=== PATIENT | female | born 1955 | race Caucasian/White ===

== ENCOUNTER → 2020-04-28 16:15 | Outpatient (CLI) | payer OTHER, SELFPAY ==
--- NOTE | ~2020-04-28 | XR_ITS ---
EXAMINATION: XR hand RT min 3V EXAM DATE: 04/28/2020 16:52 INDICATION: Mass of subcutaneous tissue, right little finger. TECHNIQUE: Right hand frontal, lateral and oblique projections obtained and reviewed. There is no pr ior study for comparison. FINDINGS: Right metacarpal bones are unremarkable. There is mild polyarticular interphalangeal prima ry osteoarthritis. There are no bony erosions identified. There are no acute fractures identified. N o radiopaque foreign bodies identified. Slightly bulbous appearance to the 5th digit over the distal phalanx and also the middle phalanx. No discrete density abnormality is identified within the soft ti ssue. IMPRESSION: 1. Nonspecific soft tissue swelling right 5th digit. 2. Mild polyarticular osteoarthritis. Reviewed, dictated and finalized at location A. [facility]
== END ==
PROVIDERS: PCP Family Medicine; Visit Provider Plastic Surgery
DX: R22.31 Localized swelling, mass and lump, right upper limb (principal); M19.041 Primary osteoarthritis, right hand
CPT/HCPCS: 73130

== ENCOUNTER 2020-07-20 23:17 | Emergency (ER) | payer OTHER, SELFPAY ==
--- NOTE | ~2020-07-20 | XR_ITS ---
EXAMINATION: XR chest 1V portable DATE: 07/20/2020 23:46 INDICATION: Chest pain. Shortness of breath. TECHNIQUE: A single frontal view of the chest was obtained. COMPARISON: CT abdomen and pelvis 11/16/2017 FINDINGS: The patient is rotated to her left. There is mild scarring at the lung apices. No pleural e ffusion or pneumothorax. The heart size is normal. IMPRESSION: 1. Mild scarring at the lung apices. Reviewed, dictated and finalized at location A.
--- NOTE | 2020-07-20 23:22 | ED.CHESTPAIN ---
HPI - Chest Pain General Chief Complaint: Chest Pain Stated Complaint: cp Time Seen by Provider: 07/20/20 23:22 History of Present Illness HPI narrative: Not feeling well for over 1 week. Symptoms include nausea, fatigue, weakness, body aches, and intermittent chest pain. Today the chest pain got worse. It is sharp, substernal chest pain. Radiates to the back. Associated with dyspnea. Worse with taking a deep breath. She received COVID-19 vaccine a couple of days ago. Related Data Home Medications Medication Instructions Recorded Confirmed calcium carbonate 600 mg calcium 600 mg PO DAILY 03/13/19 (1,500 mg) tablet cholecalciferol (vitamin D3) 125 5,000 unit PO DAILY 03/13/19 mcg (5,000 unit) capsule cyanocobalamin (vitamin B-12) 1,000 mcg PO DAILY 03/22/20 1,000 mcg capsule Allergies Allergy/AdvReac Type Severity Reaction Status Date / Time Sulfa (Sulfonamide Allergy Rash Verified 07/20/20 23:30 Antibiotics) Review of Systems Review of Systems: All systems reviewed & are unremarkable except as noted in HPI and below Constitutional: Constitutional: Denies fever(s) Eyes: Eyes: Reports no additional eye complaints ENT: Reports nasal congestion and Denies sore throat Cardiovascular: Cardiovascular: Reports chest pain Respiratory: Respiratory: Reports dyspnea Gastrointestinal: Gastrointestinal: Reports nausea Genitourinary: Genitourinary: Reports no additional female genitourinary complaints Musculoskeletal: Musculoskeletal: Reports back pain Neurologic: Reports system reviewed and no additional complaints, except as documented Psychiatric: Psychiatric: Reports anxiety PMFSH Past Medical History Medical History Depression Encounter for gynecological examination (general) (routine) without abnormal findings Glaucoma Menopausal symptoms Skin rash RASHEL (stress urinary incontinence, female) Vaginal lesion Surgical History Surgical History H/O dilation and curettage H/O hysterectomy with oophorectomy History of tubal ligation S/P laparoscopic surgery [place] teeth removed Family History Family History Father Diabetes mellitus, Onset Age: 85 Hypertension, Onset Age: 85 Other Family history of malignant neoplasm Social History Social History Smoking status: Light tobacco smoker Second hand tobacco smoke exposure: No Alcohol intake: current Exam Const: General: healthy appearing, no acute distress and alert Orientation/consciousness: patient oriented x3 HENMT: Head: normal to inspection Neck: Neck: normal visual inspection Chest: Chest palpation & inspection: tenderness sternum Resp: Effort & Inspection: normal respiratory effort Auscultation: clear to auscultation bilaterally, no rales, no rhonchi and no wheezes Cardio: Jugular venous distension: no JVD Rate: regular rate Rhythm: regular rhythm GI: Inspection: non-distended GI Palp: Yes Soft to palpation and No Tenderness to palpation present (GI) Skin: General skin exam: normal color Neuro: General: patient oriented x3 and moves all extremities Speech: normal speech Extrem: General: no edema Psych: Appearance: well kempt Affect: normal affect Course Vital Signs Vital signs: Vital Signs Temperature 36.4 C 07/20/20 23:24 Pulse Rate 84 07/20/20 23:24 Respiratory Rate 20 07/20/20 23:24 Blood Pressure 127/82 07/20/20 23:24 Pulse Oximetry 100 07/20/20 23:24 Temperature 36.4 C 07/21/20 02:05 Pulse Rate 87 07/21/20 02:05 Respiratory Rate 16 07/21/20 02:05 Blood Pressure 109/64 07/21/20 02:05 Pulse Oximetry 97 07/21/20 02:05 MDM - Chest Pain Differential Diagnosis Differential diagnosis: Likely unstable angina pectori
--- NOTE | 2020-07-20 23:23 | ECG_ITS ---
Measurements Intervals [place] Rate: 81 P: 24 NV: 133 QRS: 33 QRSD: 86 T: 41 QT: 373 QTc: 435 Interpretive Statements SINUS RHYTHM BORDERLINE T WAVE ABNORMALITY- ANTERIOR LEADS BASELINE WANDER- II, III, AVF, V6 BORDERLINE ECG Electronically Signed On 07-22-2020 12:05:12 CDT by Zach Gamino D.O.
[2020-07-20 23:24] VITALS: BP 127/82; PULSE 84; RESP 20; TEMP 36.4; O2SAT 100
[2020-07-20 23:32] VITALS: PULSE 78
[2020-07-20 23:35] VITALS: PULSE 75; RESP 14; O2SAT 100
[2020-07-20] MEDS: MORPHINE SULFATE (*CRX) 2 MG/ML INJ IV PUSH (23:58)
[2020-07-20] MEDS: PANTOPRAZOLE SODIUM IV 40 MG VIAL IV PUSH (23:58)
[2020-07-20] MEDS: LORazepam INJ (*CRX) 2 MG/ML VIAL 0.5 MG IV PUSH (23:58)
[2020-07-20] MEDS: SODIUM CHLORIDE 0.9% IV 500 ML 999 ML IV CONT (23:59)
[2020-07-21] VITALS (12 sets, daily range): BP systolic 97–119; BP diastolic 50–76; PULSE 70–87; RESP 15–25; TEMP 36.4; O2SAT 97–100
[2020-07-21 00:01] LABS: Basophils Absolute Auto 0.1 K/mm3 (0.0-0.1); Basophils Percent Auto 0.5 % (0.2-1.2); Eosinophils Absolute Auto 0.1 K/mm3 (0-0.3); Eosinophils Percent Auto 0.7 % (0-4.4); Hematocrit 42.7 % (37.0-47.0); Hemoglobin 14.9 g/dL (12.0-15.0); Immature Granulocyte Absolute 0.03 K/mm3 (0.00-0.031); Immature Granulocyte Percent A 0.3 % (0-0.5); Lymphocytes Absolute Auto 0.88 K/mm3 (0.9-3.2); Lymphocytes Percent Auto 7.9 % (18.3-44.2); Mean Corpuscular HGB Conc 34.9 g/dl (32-36); Mean Corpuscular Hemoglobin 32.8 pg (26-34); Mean Corpuscular Volume 94.1 fl (80-100); Mean Platelet Volume 10.3 fl (7.4-10.4); Monocytes Absolute Auto 0.5 K/mm3 (0.1-0.6); Monocytes Percent Auto 4.7 % (2.6-8.5); Neutrophils Absolute Auto 9.5 K/mm3 (1.3-6.7); Neutrophils Percent Auto 85.9 % (45.5-73.1); Platelet Count Result 264 k/mm3 (150-375); Red Blood Count 4.54 M/mm3 (4.2-5.4); Red Cell Distribution Width 12.5 % (11.5-14.5); White Blood Count 11.1 K/mm3 (4.5-10.0)
[2020-07-21 00:10] LABS: Alanine Aminotransferase 18 U/L (4-35); Alkaline Phosphatase 53 U/L (38-126); Anion Gap 14 mmol/L (8-16); Aspartate Amino Transferase 26 U/L (14-36); Bilirubin,Total 0.6 mg/dL (0.2-1.3); Blood Urea Nitrogen 19 mg/dL (7-17); Calcium 9.9 mg/dL (8.4-10.2); Carbon Dioxide 25 mmol/L (22-30); Chloride 104 mmol/L (98-107); Estimated CRCL calculation 47 ml/min; Estimated Glomerular Filt Rate > 60; Glucose 110 mg/dL (65-105); Potassium 3.4 mmol/L (3.4-5.0); Sodium 143 mmol/L (137-145)
[2020-07-21 00:22] LABS: Troponin I < 0.012 ng/mL (0.000-0.034)
[2020-07-21 00:31] LABS: Add Urine Microscopic? YES; Appearance Urine Cloudy (Clear); Bilirubin Urine Negative (Negative); Blood Urine Negative (Negative); Color Urine Yellow (Yellow); Glucose Urine UA Negative (Negative); Ketones Urine 1+ mg/dL (Negative); Leukocyte Esterase Ur 2+ LEU/UL (Negative); Mucus Urine Heavy /lpf; Nitrate Urine Negative (Negative); Protein Urine 1+ mg/dL (Negative); Specific Grav Ur 1.017 (1.001-1.035); Squamous Epithelial Cell Urine Moderate /hpf (Few); Urobilinogen Urine Negative mg/dL (<2.0)
== END 2020-07-21 02:09 | disposition home or self-care (01) ==
PROVIDERS: Emergency Provider Emergency Medicine; PCP Family Medicine
DX: R07.89 Other chest pain (principal); R94.31 Abnormal electrocardiogram [ECG] [EKG]
CPT/HCPCS: 36415; 71045; 80053; 81001; 84484; 85025; 93005; 96361; 96374; 96375; 99284; C9113; J2060; J2270; J7040

== ENCOUNTER 2020-11-18 09:17 | Outpatient (CLI) | payer OTHER, SELFPAY ==
--- NOTE | ~2020-11-18 | US_ITS ---
EXAMINATION: US right upper quadrant EXAM DATE: 11/18/2020 10:04 INDICATION: Epigastric pain. TECHNIQUE: Multiple grayscale and Doppler images of the abdomen right upper quadrant were obtained (b y a technologist who performed the scan) and subsequently reviewed. There is no prior study for diogo ritchie. FINDINGS: The pancreatic head and body are normal in appearance. The pancreatic tail is not visualized. The l iver has normal echogenicity and contour. There are no focal liver lesions identified. There is no evidence of intrahepatic biliary duct dilation. Portal venous flow was seen in the hepatopedal, nor mal direction and has normal Doppler waveform. No right-sided hydronephrosis. Common bile duct measures 4 mm, which is normal. The gallbladder wall is normal in thickness, with ex pected amount of distention. No sonographic evidence of pericholecystic fluid. There is no cholelit hiases. Technologist performing exam reports patient did not demonstrate sonographic Miles's sign. Please note that this sign is less reliable in patients who have received pain medication. IMPRESSION: 1. Unremarkable abdominal ultrasound exam. Reviewed, dictated and finalized at location B.
== END 2020-11-18 09:18 | disposition home or self-care (01) ==
PROVIDERS: PCP Family Medicine; Visit Provider Family Medicine
DX: R10.13 Epigastric pain (principal)
CPT/HCPCS: 76705

== ENCOUNTER 2021-04-03 08:14 | Outpatient (CLI) | payer OTHER, SELFPAY ==
[2021-04-03 08:37] LABS: Basophils Absolute Auto 0.1 K/mm3 (0.0-0.1); Basophils Percent Auto 1.2 % (0.2-1.2); Eosinophils Absolute Auto 0.1 K/mm3 (0-0.3); Eosinophils Percent Auto 2.6 % (0-4.4); Hematocrit 40.9 % (37.0-47.0); Hemoglobin 14.1 g/dL (12.0-15.0); Immature Granulocyte Absolute 0.01 K/mm3 (0.00-0.031); Immature Granulocyte Percent A 0.2 % (0-0.5); Lymphocytes Percent Auto 28.8 % (18.3-44.2); Mean Corpuscular HGB Conc 34.5 g/dl (32-36); Mean Corpuscular Hemoglobin 33.4 pg (26-34); Mean Corpuscular Volume 96.9 fl (80-100); Mean Platelet Volume 10.1 fl (7.4-10.4); Monocytes Absolute Auto 0.3 K/mm3 (0.1-0.6); Monocytes Percent Auto 7.5 % (2.6-8.5); Neutrophils Absolute Auto 2.5 K/mm3 (1.3-6.7); Neutrophils Percent Auto 59.7 % (45.5-73.1); Platelet Count Result 246 k/mm3 (150-375); Red Blood Count 4.22 M/mm3 (4.2-5.4); Red Cell Distribution Width 12.2 % (11.5-14.5); White Blood Count 4.2 K/mm3 (4.5-10.0)
[2021-04-03 08:59] LABS: LDL Cholesterol Direct 107 mg/dL
[2021-04-03 09:02] LABS: Alanine Aminotransferase 18 U/L (4-35); Albumin Level 4.7 g/dL (3.5-5.1); Alkaline Phosphatase 65 U/L (38-126); Anion Gap 9 mmol/L (8-16); Aspartate Amino Transferase 28 U/L (14-36); Bilirubin,Total 1.1 mg/dL (0.2-1.3); Blood Urea Nitrogen 18 mg/dL (7-17); Calcium 9.6 mg/dL (8.4-10.2); Carbon Dioxide 27 mmol/L (22-30); Chloride 103 mmol/L (98-107); Cholesterol 259 mg/dL (0-200); Estimated Glomerular Filt Rate > 60; Glucose 99 mg/dL (65-110); Potassium 4.2 mmol/L (3.4-5.0); Sodium 139 mmol/L (137-145); Triglycerides 106 mg/dL (<150)
[2021-04-03 09:11] LABS: Vitamin D 25 Hydroxy 60.3 ng/mL
[2021-04-03 09:47] LABS: HDL Direct 116 mg/dL
== END 2021-04-03 08:15 | disposition home or self-care (01) ==
PROVIDERS: PCP Family Medicine; Visit Provider Student in an Organized Health Care Education/Training Program
DX: Z00.00 Encounter for general adult medical examination without abnormal findings (principal)
CPT/HCPCS: 36415; 80053; 80061; 82306; 84443; 85025

== ENCOUNTER 2021-05-22 01:15 | Day surgery (SDC) | payer OTHER, SELFPAY ==
[2021-05-11 08:46] VITALS: BMI 22.2
[2021-05-22 09:59] VITALS: BP 150/103; PULSE 92; RESP 18; TEMP 36.8; O2SAT 100; BMI 22.6
[2021-05-22] MEDS: LACTATED RINGERS 1,000 ML 150 ML IV CONT (10:08)
--- NOTE | 2021-05-22 10:12 | WPDANESEPPF ---
Anes - Initial Pre Proc Eval Procedure: Operation Date: 05/22/21 11:00 Proposed Procedures p Screening Colonoscopy - Klever Johnson MD Date/Time: 05/22/21 10:12 Surgeon: Klever Johnson MD Pre Op Diagnosis: neoplasm screening Patient Data Age: 65 Gender: F Height: 1.6 m Weight: 58.1 kg Last Vital Signs Temp 36.8 C 05/22/21 09:59 Pulse 92 05/22/21 09:59 Resp 18 05/22/21 09:59 BP 150/103 H 05/22/21 09:59 Pulse Ox 100 05/22/21 09:59 Allergies Allergy/AdvReac Type Severity Reaction Status Date / Time Sulfa (Sulfonamide Allergy Rash Verified 05/22/21 09:58 Antibiotics) Home Medications Medication Instructions Recorded Confirmed Type calcium carbonate 600 mg calcium 600 mg PO DAILY 03/13/19 05/11/21 History (1,500 mg) tablet cholecalciferol (vitamin D3) 125 5,000 unit PO DAILY 03/13/19 05/11/21 History mcg (5,000 unit) capsule cyanocobalamin (vitamin B-12) 1,000 mcg PO DAILY 03/22/20 05/11/21 History 1,000 mcg capsule venlafaxine 150 mg 150 mg PO DAILY #90 cap 03/24/21 05/11/21 Rx capsule,extended release 24 hr Patient hx anesthesia problems: none Family hx anesthesia problems: none Results Review: All pre-operative results and documents have been reviewed as part of the pre-operative evaluation. [facility] Past Medical History Medical History Depression Encounter for gynecological examination (general) (routine) without abnormal findings Glaucoma Menopausal symptoms Skin rash RASHEL (stress urinary incontinence, female) Vaginal lesion Surgical History Surgical History H/O dilation and curettage H/O hysterectomy with oophorectomy History of bladder surgery History of tubal ligation S/P laparoscopic surgery [place] teeth removed Family History Family History Father Diabetes mellitus, Onset Age: 85 Hypertension, Onset Age: 85 Other Family history of malignant neoplasm Social History Social History Smoking packs per day: 0.5 Smoking cigarettes per day: 10.0 Years smoked: 10 Smoking pack-years: 5.00 Smoking status: Former smoker Tobacco type: cigarettes Second hand tobacco smoke exposure: No Alcohol intake: current Drinks per week: 4 Substance use: never Substance use type: does not use Living arrangements: with family Anes - Eval Final PreProcedure Day of Procedure 05/22/21 10:12 Patient weight: normal Heart: regular rate and rhythm Lungs: clear to auscultation Airway: Mallampati scale class 1 Neurological: alert and oriented Last oral intake: >/= 8 hours ASA classification: II Emergent: no Anesthetic plan: proceed Anesthesia type and monitoring: general GIVS and standard monitoring Results Review: All pre-operative results and documents have been reviewed as part of the pre-operative evaluation. Informed Consent: The patient's anesthetic plan and its attendant risks and benefits were discussed with the patient/family/POA. Questions were solicited and answers provided to the satisfaction of the patient/family/POA.
--- NOTE | 2021-05-22 10:37 | PM.HPGS ---
History of Present Illness History of Present Illness Consent: Risks, benefits, and alternatives have been discussed and questions answered. Patient agrees to proceed with procedure. Chief complaint: neoplasm screening Narrative: Marielle Mo is a 65 year old female here for screening colonoscopy, last one 13 years ago. Review of Systems Constitutional: Constitutional: Denies headache(s) and Denies weakness Eyes: Eyes: Denies blurry vision ENT: Reports Normal hearing present, Denies headache(s) and Denies neck pain Cardiovascular: Cardiovascular: Denies chest pain and Denies dyspnea Respiratory: Respiratory: Denies dyspnea Gastrointestinal: Gastrointestinal: Reports no additional gastrointestinal complaints Genitourinary: Genitourinary: Denies dysuria Musculoskeletal: Musculoskeletal: Denies neck pain Integumentary/Breasts: Skin/Breast: Denies dry skin Neurologic: Reports Normal hearing present, Denies headache(s) and Denies weakness Psychiatric: Psychiatric: Denies anxiety Endocrine: Endocrine: Denies change in body appearance Hematologic/Lymphatic: Hematologic/Lymphatic: Denies easy bleeding Allergic/Immunologic: Allergic/Immunologic: Denies urticaria PMFSH Past Medical History Medical History (Updated 05/22/21 @ 10:37 by Klever Johnson MD) Colon cancer screening Depression Encounter for gynecological examination (general) (routine) without abnormal findings Glaucoma Menopausal symptoms Skin rash RASHEL (stress urinary incontinence, female) Vaginal lesion Surgical History Surgical History H/O dilation and curettage H/O hysterectomy with oophorectomy History of bladder surgery History of tubal ligation S/P laparoscopic surgery [place] teeth removed Family History Family History Father Diabetes mellitus, Onset Age: 85 Hypertension, Onset Age: 85 Other Family history of malignant neoplasm Social History Social History Smoking packs per day: 0.5 Smoking cigarettes per day: 10.0 Years smoked: 10 Smoking pack-years: 5.00 Smoking status: Former smoker Tobacco type: cigarettes Second hand tobacco smoke exposure: No Alcohol intake: current Drinks per week: 4 Substance use: never Substance use type: does not use Living arrangements: with family Meds Home Medications and Allergies Home Medications Medication Instructions Recorded Confirmed Type calcium carbonate 600 mg calcium 600 mg PO DAILY 03/13/19 05/11/21 History (1,500 mg) tablet cholecalciferol (vitamin D3) 125 5,000 unit PO DAILY 03/13/19 05/11/21 History mcg (5,000 unit) capsule cyanocobalamin (vitamin B-12) 1,000 mcg PO DAILY 03/22/20 05/11/21 History 1,000 mcg capsule venlafaxine 150 mg 150 mg PO DAILY #90 cap 03/24/21 05/11/21 Rx capsule,extended release 24 hr Allergies Allergy/AdvReac Type Severity Reaction Status Date / Time Sulfa (Sulfonamide Allergy Rash Verified 05/22/21 09:58 Antibiotics) Vital Signs Vital Signs - 24 hr 05/22/21 09:59 Temperature 98.2 F Pulse Rate 92 Respiratory Rate 18 Blood Pressure 150/103 H Pulse Oximetry 100 Exam Const: General: comfortable and no acute distress HENMT: General nose exam: Normal nares present Eyes: General: appearance normal, both eyes and all related structures Neck: Neck: no JVD Resp: Auscultation: clear to auscultation bilaterally Cardio: Rate: regular rate Rhythm: regular rhythm GI: Inspection: non-distended GI Palp: Yes Soft to palpation Skin: General skin exam: normal color Neuro: General: gait normal Speech: normal speech Extrem: General: normal to inspection Psych: Mental Status: mental status grossly normal Assessment and Plan Assessment and plan (1) Colon cancer screening: Code(
[2021-05-22 11:01] VITALS: BP 122/85; PULSE 84; RESP 20; O2SAT 98
[2021-05-22 11:11] VITALS: BP 108/80; PULSE 76; RESP 19; O2SAT 95
[2021-05-22 11:21] VITALS: BP 130/75; PULSE 73; RESP 22; O2SAT 95
== END 2021-05-22 11:30 | disposition home or self-care (01) ==
PROVIDERS: PCP Family Medicine; Visit Provider Internal Medicine Gastroenterology
PROC: 0DJD8ZZ Inspection of Lower Intestinal Tract, Via Natural or Artificial Opening Endoscopic (ICD-10-PCS; CPT 45378; principal; 2021-05-22 11:00)
DX: Z12.11 Encounter for screening for malignant neoplasm of colon (principal); D12.3 Benign neoplasm of transverse colon; K57.30 Diverticulosis of large intestine without perforation or abscess without bleeding; Z87.891 Personal history of nicotine dependence
CPT/HCPCS: 45385; 88305; J2704; J7120

== ENCOUNTER 2023-05-23 06:32 | Day surgery (SDC) | payer MEDICARE, OTHER, SELFPAY ==
[2023-05-08 14:55] VITALS: BMI 23.8
--- NOTE | 2023-05-22 10:43 | WPDANESEPPF ---
Anes - Initial Pre Proc Eval Procedure: Operation Date: 05/23/23 08:15 Proposed Procedures p Right Small Finger Fasciectomy, Possible Capsulotomy - Sandy Bowman MD Date/Time: 05/22/23 10:43 Surgeon: Sandy Bowman MD Pre Op Diagnosis: Dupuytrens Contracture Right Small Finger Patient Data Age: 67 Gender: F Height: 1.6 m Weight: 61 kg Allergies Allergy/AdvReac Type Severity Reaction Status Date / Time Sulfa (Sulfonamide Allergy Rash Verified 05/23/23 07:11 Antibiotics) Home Medications Medication Instructions Recorded Confirmed Type calcium carbonate 600 mg calcium 600 mg PO DAILY 03/13/19 05/23/23 History (1,500 mg) tablet (Calcium) cyanocobalamin (vitamin B-12) 1,000 mcg PO DAILY 03/22/20 05/23/23 History 1,000 mcg capsule venlafaxine 150 mg 150 mg PO DAILY #90 caps 06/25/22 05/23/23 Rx capsule,extended release 24 hr latanoprost 0.005 % eye drops 1 drp EACH EYE DAILY 03/12/23 05/23/23 History hydrochlorothiazide 25 mg tablet 25 mg PO DAILY #90 tabs 04/24/23 05/23/23 Rx Patient hx anesthesia problems: none Family hx anesthesia problems: none Results Review: All pre-operative results and documents have been reviewed as part of the pre-operative evaluation. [facility] Past Medical History Medical History Age related osteoporosis Depression Glaucoma Hypertension Surgical History Surgical History H/O colonoscopy with polypectomy 05/22/2021 H/O dilation and curettage (Unknown) H/O hysterectomy with oophorectomy 2002 History of bladder surgery bladder suspension 2019 History of cataract surgery History of tubal ligation S/P laparoscopic surgery [place] teeth removed Family History Family History Father Diabetes mellitus, Onset Age: 85 Hypertension, Onset Age: 85 Other Family history of malignant neoplasm Social History Social History Smoking packs per day: 0.5 Smoking cigarettes per day: 10.0 Years smoked: 10 Smoking pack-years: 5.00 Smoking status: Former smoker Tobacco type: cigarettes Second hand tobacco smoke exposure: No Alcohol intake: current Drinks per week: 4 Substance use: never Substance use type: does not use Lack of Transportation: No Lack of Food: Never True Current Housing: I Have Housing Concerned About Future Housing: No Difficulty Paying Gas/Electric Bills: No Difficulty Paying for Meds: No Currently Unemployed: YES Education: High School Diploma/GED Living arrangements: with family Occupation/Education: retired Gender identity (if verbalized by the patient): Female Sexual Orientation (if Verbalized by the Patient): Straight or Heterosexual Spiritual care concerns: No Anes - Eval Final PreProcedure Day of Procedure 05/22/23 10:43 Patient weight: normal Heart: regular rate and rhythm Lungs: clear to auscultation and normal air movement Airway: Mallampati scale class II Neurological: alert and oriented Last oral intake: >/= 8 hours ASA classification: II Emergent: no Anesthetic plan: proceed Anesthesia type and monitoring: general GIVS and standard monitoring Results Review: All pre-operative results and documents have been reviewed as part of the pre-operative evaluation. Informed Consent: The patient's anesthetic plan and its attendant risks and benefits were discussed with the patient/family/POA. Questions were solicited and answers provided to the satisfaction of the patient/family/POA.
--- NOTE | 2023-05-23 07:15 | WPDHPUPDATE1 ---
History and Physical Update Update Date/Time: 05/23/23 07:15 Patient seen and examined in pre-operative holding area. No interval change in medical history or symptoms. Patient recalls previous discussion of benefits and alternatives to procedure. Continues to desire to proceed with right small finger fasciectomy possible dipjoint capsulotomy for dupuytren's contracture. Reviewed procedure, post-op expectations and risks including but not limited to bleeding, infection, injury to tendon/nerve/vessel, decreased hand function, stiffness, RSD, no change or worsening of symptoms, recurrence, incomplete release. I discussed the possible use of assistants and their participation in the case. Patient stated understanding and signed the consent form wishing to proceed.
[2023-05-23 07:16] VITALS: BP 134/99; PULSE 84; RESP 14; TEMP 36.3; O2SAT 100
--- NOTE | 2023-05-23 07:16 | W.PM.PROC2 ---
Procedure Note - Detailed Date of Procedure 05/23/23 Pre-op Diagnosis Dupuytrens Contracture Right Small Finger Post-op Diagnosis Same Procedure Performed right small finger fasciectomy Surgeon Sandy Bowman MD Passenger Coach Driver Isaías Centeno PA-C Anesthesia MAC Description of Procedure INFORMED CONSENT: The patient was seen and examined and marked in the pre-op area.? The patient signed the consent form. PROCEDURE IN DETAIL:The patient taken back to OR on the stretcher in supine position. Time out performed with anesthesia, surgeon and staff agreeing on patient's name site and surgery to be performed SCDs were placed on the lower extremities and inflated. A tourniquet was placed on {right} upper extremity and antibiotics given IV After anesthesia administered sedation I injected {5}cc 1%lido and 0.5% marcaine plain at the operative site The?{right upper extremity}?was prepped and draped in sterile fashion the??{right upper extremity} was? exsanguinated with Esmarch bandage and tourniquet inflated to 250mmHg I proceeded with making a longitudinal incision over the right small finger retrovascular cord with a 15 blade scalpel through skin and dermis. Skin flaps were elevated by spreading with a littler scissor. The radial neurovascular bundle was identified deep to doreen's ligament along with the cord that appeared mostly volar to this. I circumferentially dissected around the cord at its proximal origin and proceeded with anterograde dissection past the DIPjoint Until I was able to achieve full extension of the dipjoint. i irrigated with normal saline and then constructed a Z-plasty across the dipjoint flexion crease. The incision was closed with 4-0 chromic A dressing of xeroform, 4x4, malini, and an ulnar gutter splint was applied for patient safety, security, and comfort and secured with an alina bandage after the tourniquet was let down noting the hand was warm and well perfused. The patient was then awaken from anesthesia and transferred to the recovery room in stable condition.? Complications - none EBL- 1cc Disposition - home in stable conditions Isaías Centeno PA-C was essential for positioning, retraction, closure and dressing/splint placement [facility] Billing Surgery - Charge Forward: Surgery Billing ([id number] same for isaías with modifier )
[2023-05-23] MEDS: LACTATED RINGERS 1,000 ML 30 ML IV CONT (07:32)
[2023-05-23] MEDS: ceFAZolin SODIUM 2 GM/20 ML SW SYRINGE IV PUSH (08:17)
[2023-05-23] MEDS: LIDOCAINE HCL 1% LOCAL INJ 20 ML VIAL INFILTRATE (08:21)
[2023-05-23] MEDS: BUPivacaine HCL 0.5% 10 ML AMP INFILTRATE (08:21)
[2023-05-23 08:44] VITALS: BP 111/76; PULSE 77; RESP 16; O2SAT 98
[2023-05-23 09:15] VITALS: BP 132/80; PULSE 69; RESP 16; O2SAT 98
--- NOTE | 2023-05-23 11:28 | WPDANESPN ---
Anes - Prog Note Post-Op Date/Time: 05/23/23 11:28 Cardiovascular status: normal Respiratory status: normal Airway patency: baseline Mental status: baseline Post-Op hydration status: normal Vital Signs: Last Vital Signs Temp 36.3 C L 05/23/23 07:16 Pulse 69 05/23/23 09:15 Resp 16 05/23/23 09:15 BP 132/80 05/23/23 09:15 Pulse Ox 98 05/23/23 09:15 O2 Del Method Room Air 05/23/23 09:15 Pain Score (VAS): 0 I/O: Intake & Output 05/22/23 05/23/23 05/23/23 23:59 07:59 15:59 Intake Total 100 Balance 100 Post-procedural complaints: none Patient Feedback: Patient satisfied with anesthetic care. Other Findings: Patient vital signs back to baseline. Patient denies nausea and vomiting. Patient's pain under control. Patient OK for discharge.
== END 2023-05-23 09:50 | disposition home or self-care (01) ==
PROVIDERS: PCP Family Medicine; Visit Provider Plastic Surgery
PROC: (CPT 26045; principal; 2023-05-23 08:15)
DX: M72.0 Palmar fascial fibromatosis [Dupuytren] (principal)
CPT/HCPCS: 26123

== ENCOUNTER 2023-05-23 08:05 | Outpatient (NON) | payer MEDICARE, OTHER, SELFPAY | END 2023-05-23 08:06 | disposition home or self-care (01) | LOC: ANHLAB 05-24 08:06 | PROVIDERS: PCP Family Medicine; Visit Provider Plastic Surgery | DX: M72.0 Palmar fascial fibromatosis [Dupuytren] (principal) | CPT/HCPCS: 88304 ==

== ENCOUNTER 2023-11-16 23:37 | Emergency (ER) | payer MEDICARE, OTHER, SELFPAY ==
--- NOTE | ~2023-11-16 | XR_ITS ---
EXAMINATION: XR tibia fibula RT 2V DATE: 11/17/2023 00:39 INDICATION: Right lower leg pain. Fall. TECHNIQUE: 2 views of right tibia and fibula were obtained. COMPARISON: None. FINDINGS: Bone alignment is normal. No fracture. There is mild right knee osteoarthritis. No knee nancy nt effusion. IMPRESSION: 1. Mild right knee osteoarthritis. Reviewed, dictated and finalized at location E.
--- NOTE | ~2023-11-16 | XR_ITS ---
EXAMINATION: XR knee LT 3V DATE: 11/17/2023 00:40 INDICATION: Anterior left knee pain. Fall. TECHNIQUE: 3 views of left knee were obtained. COMPARISON: None. FINDINGS: There is a comminuted fracture of patella. The main distal fracture fragment demonstrates 4 mm distraction anteriorly. There is mild osteoarthritis of medial and lateral compartments character ized by tiny osteophytes. There is a large hemarthrosis. IMPRESSION: 1. Comminuted fracture of patella. 2. Mild left knee osteoarthritis. 3. Large left knee hemarthrosis. Reviewed, dictated and finalized at location E.
[2023-11-16 23:44] VITALS: BP 141/93; PULSE 80; RESP 14; TEMP 36.4; O2SAT 100
--- NOTE | 2023-11-16 23:48 | ED.FALL ---
HPI - Fall General Chief Complaint: Fall Stated Complaint: L knee pain, fall Time Seen by Provider: 11/16/23 23:47 Source: patient Mode of arrival: ambulatory Limitations: no limitations History of Present Illness HPI Narrative: Marielle is a 67-year-old female patient presenting to the ER today with complaints of a ground level mechanical fall. She reports she tripped over a microwave that was out in the garage and landed on concrete. Denies hitting her head or any loss of consciousness. States she has left anterior knee pain and right anterior tib-fib pain. This occurred prior to coming into the ER tonight. States she is having a lot of pain to the left knee and is unable to walk on it Related Data Home Medications Medication Instructions Recorded Confirmed calcium carbonate (Calcium 600) 600 mg PO DAILY 03/13/19 05/23/23 cyanocobalamin (vitamin B-12) 1,000 mcg PO DAILY 03/22/20 05/23/23 1,000 mcg capsule latanoprost 0.005 % eye drops 1 drp EACH EYE DAILY 03/12/23 05/23/23 Allergies Allergy/AdvReac Type Severity Reaction Status Date / Time Sulfa (Sulfonamide Allergy Rash Verified 06/06/23 10:02 Antibiotics) Review of Systems Review of Systems: Pertinent positives per HPI. Patient denies any fever, chills, rash, headache, visual changes, dizziness, cough, runny nose, sore throat, shortness of breath, chest pain, palpitations, nausea, vomiting, diarrhea, constipation, abdominal pain, or any urinary issues. [facility] Past Medical History Medical History Age related osteoporosis Depression Glaucoma Hypertension Surgical History Surgical History H/O colonoscopy with polypectomy 05/22/2021 H/O dilation and curettage (Unknown) H/O hysterectomy with oophorectomy 2002 History of bladder surgery bladder suspension 2019 History of cataract surgery History of tubal ligation S/P laparoscopic surgery [place] teeth removed Family History Family History Father Diabetes mellitus, Onset Age: 85 Hypertension, Onset Age: 85 Other Family history of malignant neoplasm Social History Social History Smoking packs per day: 0.5 Smoking cigarettes per day: 10.0 Years smoked: 10 Smoking pack-years: 5.00 Smoking status: Former smoker Tobacco type: cigarettes Second hand tobacco smoke exposure: No Alcohol intake: current Drinks per week: 4 Substance use: never Substance use type: does not use Lack of Transportation: No Lack of Food: Never True Current Housing: I Have Housing Concerned About Future Housing: No Difficulty Paying Gas/Electric Bills: No Difficulty Paying for Meds: No Currently Unemployed: YES Education: High School Diploma/GED Living arrangements: with family Occupation/Education: retired Gender identity (if verbalized by the patient): Female Sexual Orientation (if Verbalized by the Patient): Straight or Heterosexual Spiritual care concerns: No Comments At the time of my signature, I reviewed and agree with the nursing past medical, surgical, social, and family history. There is no relevant family history pertinent to the patient complaint. Exam Narrative: General: Well-developed, well nourished, in no apparent distress Head: Normocephalic, atraumatic. Cardio: Regular rate and rhythm, s1 and s2 normal, no murmur appreciated. Resp: Clear to auscultation bilaterally, no rhonchi, rales, wheezing or rubs. Musculoskeletal: No deformity, bruising and swelling noted over the left anterior knee and over the right anterior tib fib,tender to palpation over the left anterior knee and over the right anterior tib-fib, limited range of motion to the left knee as patient is in a lot of pain,grossly normal
[2023-11-17 00:02] VITALS: BP 133/84; PULSE 79; RESP 16; O2SAT 97
[2023-11-17] MEDS: HYDROcodone/acetaminophen (*CRX) 7.5-325 MG TABLET 1 TAB PO (01:37)
== END 2023-11-17 01:58 | disposition home or self-care (01) ==
PROVIDERS: Emergency Provider Nurse Practitioner Family; PCP Family Medicine
DX: S82.002A Unspecified fracture of left patella, initial encounter for closed fracture (principal); S80.11XA Contusion of right lower leg, initial encounter; W18.09XA Striking against other object with subsequent fall, initial encounter; I10 Essential (primary) hypertension; M81.0 Age-related osteoporosis without current pathological fracture; F32.A Depression, unspecified; H40.9 Unspecified glaucoma; Z87.891 Personal history of nicotine dependence
CPT/HCPCS: 73562; 73590; 99284; A9270

== ENCOUNTER 2023-11-20 08:47 | Outpatient (CLI) | payer MEDICARE, OTHER, SELFPAY ==
--- NOTE | 2023-11-20 08:57 | ECG_ITS ---
Test Date: 2023-11-20 09:21:17 Measurements Intervals [place] Rate: 78 P: 88 TX: 124 QRS: 21 QRSD: 90 T: 17 QT: 363 QTc: 415 Interpretive Statements SINUS RHYTHM MODERATE T-WAVE ABNORMALITY, CONSIDER ANTERIOR ISCHEMIA BASELINE ARTIFACT- I, II, III, AVR, AVL, AVF, V1-V6 ABNORMAL ECG No previous ECG available for comparison Electronically Signed On 11-20-2023 09:26:00 CDT by Zach Gamino D.O.
[2023-11-20 09:49] LABS: Anion Gap 14 mmol/L (4-12); Blood Urea Nitrogen 21 mg/dL (7-17); Calcium 9.8 mg/dL (8.4-10.2); Carbon Dioxide 27 mmol/L (22-30); Chloride 96 mmol/L (98-107); Estimated Glomerular Filt Rate > 60; Glucose 94 mg/dL (65-110); Potassium 3.3 mmol/L (3.4-5.0); Sodium 137 mmol/L (137-145)
== END 2023-11-20 08:48 | disposition home or self-care (01) ==
PROVIDERS: Anesthesiology; PCP Family Medicine; Visit Provider Orthopaedic Surgery
DX: Z01.818 Encounter for other preprocedural examination (principal); E78.5 Hyperlipidemia, unspecified; I10 Essential (primary) hypertension; Z79.899 Other long term (current) drug therapy
CPT/HCPCS: 36415; 80048; 93005

== ENCOUNTER 2023-11-22 00:21 | Day surgery (SDC) | payer MEDICARE, OTHER, SELFPAY ==
--- NOTE | 2023-11-19 12:19 | PM.IMHP ---
H&P: HPI History of Present Illness Date/Time: 11/19/23 12:19 Chief Complaint: Patient had a slip and fall onto her left knee. She suffered a comminuted patella fracture with displacement. Review of Systems Musculoskeletal: Musculoskeletal: Reports myalgias, Reports arthralgias, Reports joint swelling and Reports stiffness [facility] Past Medical History Medical History Age related osteoporosis Depression Glaucoma Hypertension Surgical History Surgical History H/O colonoscopy with polypectomy 05/22/2021 H/O dilation and curettage (Unknown) H/O hysterectomy with oophorectomy 2002 History of bladder surgery bladder suspension 2019 History of cataract surgery History of tubal ligation S/P laparoscopic surgery [place] teeth removed Family History Family History Father Diabetes mellitus, Onset Age: 85 Hypertension, Onset Age: 85 Other Family history of malignant neoplasm Social History Social History Smoking packs per day: 0.5 Smoking cigarettes per day: 10.0 Years smoked: 10 Smoking pack-years: 5.00 Smoking status: Former smoker Tobacco type: cigarettes Second hand tobacco smoke exposure: No Alcohol intake: current Drinks per week: 4 Substance use: never Substance use type: does not use Do You Feel Safe in your Home?: Yes Lack of Transportation: No Lack of Food: Never True Current Housing: I Have Housing Concerned About Future Housing: No Difficulty Paying Gas/Electric Bills: No Difficulty Paying for Meds: No Currently Unemployed: No Education: High School Diploma/GED Difficulty w/ Childcare or Family Care: No Living arrangements: with family Occupation/Education: retired Gender identity (if verbalized by the patient): Female Sexual Orientation (if Verbalized by the Patient): Straight or Heterosexual Spiritual care concerns: No Meds Home Medications and Allergies Home Medications Medication Instructions Recorded Confirmed Type calcium carbonate (Calcium 600) 600 mg PO DAILY 03/13/19 11/19/23 History cyanocobalamin (vitamin B-12) 1,000 mcg PO DAILY 03/22/20 11/19/23 History 1,000 mcg capsule latanoprost 0.005 % eye drops 1 drp EACH EYE DAILY 03/12/23 11/19/23 History venlafaxine 150 mg 150 mg PO DAILY #90 caps 06/11/23 11/19/23 Rx capsule,extended release 24 hr hydrochlorothiazide 25 mg tablet See Rx Instructions .Route 10/17/23 11/19/23 Rx .COMPLEX #90 tabs hydrocodone 7.5 mg-acetaminophen 1 tablet PO Q6H PRN pain 7 days 11/19/23 11/19/23 Rx 325 mg tablet #30 tabs Allergies Allergy/AdvReac Type Severity Reaction Status Date / Time Sulfa (Sulfonamide Allergy Rash Verified 11/19/23 10:15 Antibiotics) Exam Narrative: Patient is unable to straighten her leg. She has got moderate swelling and pain with manipulation. Radiology Reports: Comments: Patient: Marielle Mo EXAMINATION: XR knee LT 3V DATE: 11/17/2023 00:40 INDICATION: Anterior left knee pain. Fall. TECHNIQUE: 3 views of left knee were obtained. COMPARISON: None. FINDINGS: There is a comminuted fracture of patella. The main distal fracture fragment demonstrates 4 mm distraction anteriorly. There is mild osteoarthritis of medial and lateral compartments characterized by tiny osteophytes. There is a large hemarthrosis. IMPRESSION: 1. Comminuted fracture of patella. 2. Mild left knee osteoarthritis. 3. Large left knee hemarthrosis. Reviewed, dictated and finalized at location E. Hand X-Ray 04/28/20 Knee X-Ray 11/17/23 Tibia/Fibula X-Ray 11/17/23 Vanita
[2023-11-19 12:38] VITALS: BMI 23.0
--- NOTE | 2023-11-19 12:39 | PC.NURSE ---
Report to the Outpatient Waiting Room, entrance under the green pavilion located off [facility], at time _0600_ on date _[id number]_. Planned Procedure Time: _0730_. Time changes happen often and if your time is changed the preop area will call you the afternoon before. - You and your visitor will be asked to self-screen and do not enter if you have any COVID symptoms. - A mask is optional within the hospital at this time. Patients may have clear liquids (water, carbonated beverages, clear teas, apple juice) until 3 hours prior to surgery with a maximum of 20 ounces. - No food from midnight until time of surgery Take the following medications with a SIP of water the morning of surgery: ___Venlafaxine and if needed pain pill DO NOT STOP ANY OF YOUR OTHER PRESCRIPTION MEDICATIONS PRIOR TO SURGERY ?EXCEPT THE FOLLOWING Medications to discontinue per physician Calcium and vitamin B-12 Date to take last dose___Stop now. Please no make-up, nail cambodian, hairspray, perfume, deodorant, or body powder the day of surgery. No jewelry (including any body piercings) or valuables the day of surgery, leave them at home. Please take a shower or bath the night before, or the morning of, surgery with an antibacterial soap. Wear comfortable, loose fitting clothing. - Jewelry must be removed prior to entering the operating room. Rings and piercings that are not removed may be cut off. - The hospital will not accept responsibility for valuables. - Please leave all valuables, including medications, at home the day of surgery. If you are going home after surgery, a licensed water taxi driver must drive you home. - NO public transportation without another adult if you receive anesthesia. - We recommend that an adult stay with you for 24 hours following discharge. - We also recommend that you do not drive, make important decision, drink alcoholic beverages, or take any drugs that were not prescribed by your health care provider for at least 24 hours after your discharge time. Follow any additional instructions given to you from your surgeon. If you or anyone in your household have experienced Covid symptoms in the past week, please notify your surgeon or the nurse liaison at the phone number below for possible testing. Telephone instructions given to __Barb___and asked if any additional questions and then verbalized understanding. Patient advised to call surgeon office or pre surgery nurse liaison [phone] if any additional questions.
[2023-11-22] VITALS (12 sets, daily range): BP systolic 139–185; BP diastolic 86–108; PULSE 74–83; RESP 10–20; TEMP 36.3–36.6; O2SAT 92–100
--- NOTE | ~2023-11-22 | XR_ITS ---
EXAMINATION: XR surgery orthopedic DATE: 11/22/2023 08:37 INDICATION: Left patella fracture. TECHNIQUE: 2 intraoperative fluoroscopic views of left knee were obtained. I was not present. Fluoros copy exposure time was 28 seconds. COMPARISON: Left knee radiographs 11/17/2023 FINDINGS: There is a comminuted fracture of patella in near-anatomic alignment status post open reduc tion internal fixation with 2 wires and iesoiz-kb-ojkdy tension band. IMPRESSION: 1. Comminuted fracture of patella status post reduction internal fixation. Reviewed, dictated and finalized at location A.
--- NOTE | 2023-11-22 06:48 | WPDHPUPDATE1 ---
History and Physical Update Update Date/Time: 11/22/23 06:48 History and Physical has been reviewed, including an updated exam of the patient. There are NO changes in the patient's condition. Risks, benefits, and alternatives have been discussed and questions answered. Patient agrees to proceed with procedure. Discussed grafting and possibility of further surgeries.
--- NOTE | 2023-11-22 06:53 | WPDANESEPPF ---
Anes - Initial Pre Proc Eval Procedure: Operation Date: 11/22/23 07:30 Proposed Procedures p Open Reduction Internal Fixation Left Patella Fracture - Joshua Sanford MD Date/Time: 11/22/23 06:53 Surgeon: Joshua Sanford MD Pre Op Diagnosis: Left Patella Fx Patient Data Age: 67 Gender: F Height: 1.6 m Weight: 59 kg Allergies Allergy/AdvReac Type Severity Reaction Status Date / Time Sulfa (Sulfonamide Allergy Rash Verified 11/19/23 12:28 Antibiotics) Home Medications Medication Instructions Recorded Confirmed Type calcium carbonate (Calcium 600) 600 mg PO DAILY 03/13/19 11/19/23 History cyanocobalamin (vitamin B-12) 1,000 mcg PO DAILY 03/22/20 11/19/23 History 1,000 mcg capsule latanoprost 0.005 % eye drops 1 drp EACH EYE DAILY 03/12/23 11/19/23 History venlafaxine 150 mg 150 mg PO DAILY #90 caps 06/11/23 11/19/23 Rx capsule,extended release 24 hr hydrochlorothiazide 25 mg tablet See Rx Instructions .Route 10/17/23 11/19/23 Rx .COMPLEX #90 tabs hydrocodone 7.5 mg-acetaminophen 1 tablet PO Q6H PRN pain 7 days 11/19/23 11/19/23 Rx 325 mg tablet #30 tabs Patient hx anesthesia problems: none Family hx anesthesia problems: none Results Review: All pre-operative results and documents have been reviewed as part of the pre-operative evaluation. [facility] Past Medical History Medical History Age related osteoporosis Depression Glaucoma Hypertension Surgical History Surgical History H/O colonoscopy with polypectomy 05/22/2021 H/O dilation and curettage (Unknown) H/O hysterectomy with oophorectomy 2002 History of bladder surgery bladder suspension 2019 History of cataract surgery History of tubal ligation S/P laparoscopic surgery [place] teeth removed Family History Family History Father Diabetes mellitus, Onset Age: 85 Hypertension, Onset Age: 85 Other Family history of malignant neoplasm Social History Social History Smoking packs per day: 0.5 Smoking cigarettes per day: 10.0 Years smoked: 17 Smoking pack-years: 8.50 Smoking status: Former smoker Tobacco type: cigarettes Second hand tobacco smoke exposure: No Smoking end date: 11/18/93 Alcohol intake: current Drinks per week: 3 Substance use: never Substance use type: does not use Do You Feel Safe in your Home?: Yes Lack of Transportation: No Lack of Food: Never True Current Housing: I Have Housing Concerned About Future Housing: No Difficulty Paying Gas/Electric Bills: No Difficulty Paying for Meds: No Currently Unemployed: No Education: High School Diploma/GED Difficulty w/ Childcare or Family Care: No Living arrangements: with family Occupation/Education: retired Gender identity (if verbalized by the patient): Female Sexual Orientation (if Verbalized by the Patient): Straight or Heterosexual Spiritual care concerns: No Anes - Eval Final PreProcedure Day of Procedure 11/22/23 06:53 Patient weight: normal Heart: regular rate and rhythm Lungs: clear to auscultation Airway: Mallampati scale class II Neurological: alert and oriented Last oral intake: >/= 8 hours ASA classification: II Emergent: no Anesthetic plan: proceed Anesthesia type and monitoring: general LMA and standard monitoring Results Review: All pre-operative results and documents have been reviewed as part of the pre-operative evaluation. Informed Consent: The patient's anesthetic plan and its attendant risks and benefits were discussed with the patient/family/POA. Questions were solicited and answers provided to the satisfaction of the patient/family/POA.
[2023-11-22] MEDS: KETOROLAC 15 MG/ML VIAL (*BKC) IV PUSH (07:00)
[2023-11-22] MEDS: LACTATED RINGERS 1,000 ML 30 ML IV CONT ×2 (07:00→09:06)
[2023-11-22] MEDS: ceFAZolin 2 GM/D5W 50 ML 2 GM/50 ML BAG IVPB (07:30)
--- NOTE | 2023-11-22 08:28 | P.OP_ITS ---
Procedure Note - Detailed Date of Procedure 11/22/23 Pre-op Diagnosis Left Patella Fx Post-op Diagnosis Same Procedure Performed Open reduction internal fixation left patella fracture Surgeon Joshua Sanford MD Macroeconomics Professor Lenny Anesthesia General Indications Fracture Description of Procedure Patient brought to operating room #7. A general anesthetic was administered. She was sterilely prepped and draped in the usual manner. Longitudinal incision made after the tourniquet inflated. Dissection carried down to the fascia. The extensor mechanism for the most part appeared to be intact. The patellar fragments were grabbed with a Amish clamp and reduced and held. 2 K wires were drilled across. Optatp-rr-ukfdo cable was then added. At this point x-rays in the AP and lateral plane demonstrated reasonable alignment of the fracture and solid fixation. The leg was put through full range of motion. Estimated Blood Loss 50 Drains No Packing No Complications No immediate complications Condition Stable Disposition PACU [facility] Billing Surgery - Charge Forward: Surgery Billing ([id number] ORIF Left Patella)
[2023-11-22] MEDS: fentaNYL CITRATE INJ (*CRX) 100 MCG/2 ML VIAL 25 MCG IV PUSH ×4 (09:15→09:47)
[2023-11-22] MEDS: LABETALOL HCL INJ 100 MG/20 ML VIAL 10 MG IV PUSH (10:03)
[2023-11-22] MEDS: HYDROmorphone HCL INJ (*CRX) 1 MG/ML SYR 0.5 MG IV PUSH ×2 (10:03→10:10)
[2023-11-22] MEDS: oxyCODONE HCL (*CRX) 5 MG TAB IR PO (10:54)
== END 2023-11-22 11:41 | disposition home or self-care (01) ==
PROVIDERS: PCP Family Medicine; Visit Provider Orthopaedic Surgery
PROC: (CPT 27524; principal; 2023-11-22 07:30)
DX: S82.042A Displaced comminuted fracture of left patella, initial encounter for closed fracture (principal); W01.0XXA Fall on same level from slipping, tripping and stumbling without subsequent striking against object, initial encounter; I10 Essential (primary) hypertension; M81.0 Age-related osteoporosis without current pathological fracture; H40.9 Unspecified glaucoma; F32.A Depression, unspecified; Z87.891 Personal history of nicotine dependence
CPT/HCPCS: 27524; 99199; A9270; C1713; J0690; J1100; J1170; J1885; J2405; J2704; J3010; J7120

== ENCOUNTER 2024-08-27 09:54 | Outpatient (CLI) | payer MEDICARE, OTHER, SELFPAY ==
--- OUTSIDE RECORDS SUMMARY | 2024-08-27 10:15 | XMS_ITS | Encounter Summary ---
Author Organization [facility] Address [facility] [place] [address] Care Team Providers Care Research Professor Of Biostatistics Name Role Phone Michael Dumont MD Primary Care Provider [phone] Encounter Details Date Type Department Care Team (Late st Contact Info) Description 06/12/[address] [facility] [place] [id number] Hu Matamoros MD [address] [facility]. [place], [place] [id number] Social History Tobacco Use Types Packs/Day Years Used Date Smoking Tobacco: Never Assessed Comments Unknown Sex and Gender Information Value Date Recorded Sex Assigned at Not on file Legal Sex Female 6:03 PM CDT Gender Identity Not on file Sexual Orientation Not on file COVID-19 Exposure Response Date Recorded In the last month, have you been in contact with someone who was confirmed or suspected to have Coronavirus / COVID-19? No / Unsure 06/15/2020 2:09 PM LAB INSTRUCTOR documented as of this encounter H&P Notes * Hu Matamoros MD - 06/12/2020 2:48 PM CST Attending Provider: No att. providers found PCP: No primary care provider on file. Marielle Mo is an 64-year-old female. Reason for Admission: surgery for RASHEL HPI: Stress incontinence No past medical history on file. none Allergies: Not on File sulfa Social History Tobacco Use ??? Smoking status: Not on file Substance Use Topics ??? Alcohol use: Not on file No past surgical history on file. Hyst No family history on file. CAD Lung cancer Travel Exposure: No current outpatient medications on file prior to visit. No current facility-administered medications on file prior to visit. There were no vitals taken for this visit. ROS Neg Physical Exam NAD A+Ox3 Normal breathing Normal exam Assessment: RASHEL Plan: Urethral sling HU MATAMOROS MD 06/12/2020 INSTRUCTOR documented in this encounter Plan of Treatment Not on file documented as of this encounter Visit Diagnoses Not on filedocumented in this encounter Additional Health Concerns Infection Onset Date Last Indicated Resolved Time COVID-19 Rule Out 06/20/2020 06/20/2020 06/21/2020 11:21 PM LAB INSTRUCTOR documented as of this encounter Care Teams Research Professor Of Biostatistics Relationship Specialty Start Date End Date Michael Dumont MD [address] [place] [address] PCP - General FAMILY PRACTICE 06/20/20 documented as of this encounter
--- OUTSIDE RECORDS SUMMARY | 2024-08-27 10:15 | XMS_ITS | Encounter Summary ---
Author Organization [facility] Address [facility] [place] [address] Care Team Providers Care Cash Grain Farmer Name Role Phone Michael Dumont MD Primary Care Provider [phone] Encounter Details Date Type Department Care Team (Late st Contact Info) Description 06/23/2020 Prep for Procedure [facility] [address] [place], [place] [id number] Adan Anna MD [address] [facility]. [place], [place] [id number] Social History Tobacco Use Types Packs/Day Years Used Date Smoking Tobacco: Former Cigarettes Q uit: 11/13/2019 Smokeless Tobacco: Former Comments:used to be a social smoker Alcohol Use Standard Drinks/Week Comments Not Currently 8.3 (1 standard drink = 0.6 oz p ure alcohol) Comments No Sex and Gender Information Value Date Recorded Sex Assigned at Not on file Legal Sex Female 6:03 PM CDT Gender Identity Not on file Sexual Orientation Not on file COVID-19 Exposure Response Date Recorded In the last month, have you been in contact with someone who was confirmed or suspected to have Coronavirus / COVID-19? No / Unsure 06/23/2020 10:02 AM THERAPY MANAGER documented as of this encounter Plan of Treatment Not on file documented as of this encounter Results * PRE-SURGICAL/PRE-PROCEDURE CORONAVIRUS (COVID 19) (06/20/2020 10:02 AM THERAPY MANAGER) CORONAVIRUS SARS COV 2 PCR (RESP) NOT DETECTED NOT DETECTED 06/21/2020 11:21 PM THERAPY MANAGER [facility] Comment: A Not Detected (negative) test result for this test means that SARS- CoV-2 RNA was not present in the specimen above the limit of detection. A negative result does not rule out the possibility of COVID-19 and should not be used as the sole basis for treatment or patient management decisions. If COVID-19 is still suspected, based on exposure history together with other clinical findings, re-testing should be considered in consultation with public health authorities. Laboratory test results should always be considered in the context of clinical observations and epidemiological data in making a final diagnosis and patient management decisions. Please review the Fact Sheets and FDA authorized labeling available for health care providers and patients using the following websites: [email or web address]/home/Covid-19/HCP/QuestIVD/fact- sheet.html https://www.[employer]/home/Covid-19/Patients/ QuestIVD/fact-sheet.html This test has been authorized by the FDA under an Emergency Use Authorization (EUA) for use by authorized laboratories. Due to the current public health emergency, [facility] is receiving a high volume of samples from a wide variety of swabs and media for COVID-19 testing. In order to serve patients during this public health crisis, samples from appropriate clinical sources are being tested. Negative test results derived from specimens received in non-commercially manufactured viral collection and transport media, or in media and sample collection kits not yet authorized by FDA for COVID-19 testing should be cautiously evaluated and the patient potentially subjected to extra precautions such as additional clinical monitoring, including collection of an additional specimen. Methodology: Nucleic Acid Amplification Test (NAAT) includes RT-PCR or TMA Additional information about COVID-19 can be found at the [employer] [facility] website: [email or web address]/Covid19. Test performed at [facility] [address] [place] [address] Director: ROSANNE MICHAEL DO,MPH FIRST TEST YES 06/20/2020 10:37 AM [facility] EMPLOYED IN HEALTHCARE UNKNOWN 06/20/2020 10:37 AM [facility] SYMPTOMATIC DEFINED BY CDC NO 06/20/2020 10:37 AM THERAPY MANAGER [facility] DATE OF SYMPTOM ONSET NO 06/20/2020 10:51 AM THERAPY MANAGER [facility] HOSPITALIZATION STATUS NO 06/20/2020 10:37 AM THERAPY MANAGER [facility] PATIENT IN ICU NO 06/20/2020 10:37 AM THERAPY MANAGER [facility] RESIDENT OF CONGREGATE CARE UNKNOWN 06/20/2020 10:37 AM THERAPY MANAGER [facility] NO 06/20/2020 10:51 AM THERAPY MANAGER [facility] PATIENT'S RACE WHITE OR 06/20/2020 10:37 AM THERAPY MANAGER [facility] ETHNICITY NONHISPANIC 06/20/2020 10:37 AM [facility] SOURCE (QST) NASOPHARYNGEAL SWAB 06/20/2020 10:37 AM THERAPY MANAGER [facility] NASOPHARYNGEAL SWAB / Unknown 06/20/2020 10:02 AM THERAPY MANAGER us Adan Anna MD MICROBIOLOGY - GENERAL ORDER DANG Final Result [facility] [address] [place] [address], [place] [phone] [facility] [address] [place] [address], documented in this encounter Visit Diagnoses Diagnosis Preoperative testing- Primary Preoperative examination, unspecified documented in this encounter Care Teams Cash Grain Farmer Relationship Specialty Start Date End Date Michael Dumont MD [address] [place] [id number] PCP - General FAMILY PRACTICE 06/20/20 documented as of this encounter
--- OUTSIDE RECORDS SUMMARY | 2024-08-27 10:15 | XMS_ITS | Clinical Summary ---
Author Organization [facility] Address [address] [place] [address] Care Team Providers Care Felt Pad Cutter Name Role Phone Michael Dumont MD Primary Care Provider [phone] Allergies Active Allergy Reactions Criticality Noted Date Comments Sulfamethoxazole Rash Low 06/15/2020 Took about 6-7 days and developed a rash Medications calcium carb-cholecalci ferol (CALCIUM + D3) 600-800 MG-UNIT tablet Take 1 tablet by mouth daily. Active NON FORMULARY Take 2 capsules by mouth daily. Level Thrive Active citalopram 20 MG tablet Take 20 mg by mouth daily. Active Family History Medical History Relation Comments No Known Problems Brother 1 No Known Problems Brother 2 No Known Problems Brother 3 No Known Problems Brother 4 No Known Problems Daughter Heart Attack Father Cancer Mother small cell lung cancer Relation Status Comments Brother 1 Alive Brother 2 Alive Brother 3 Alive Brother 4 Alive Daughter Alive Father Mother Social History Tobacco Use Types Packs/Day Years [...] on file Sexual Orientation Not on file Last Filed Vital Signs Vital Sign Reading Time Taken Comments Blood Pressure 161/97 06/23/2020 3:25 PM MACHINE SOLE LEVELER Pulse 63 06/23/2020 3:25 PM MACHINE SOLE LEVELER Temperature 36.6 C (97.8 F) 06/23/2020 3:25 PM MACHINE SOLE LEVELER Respiratory Rate 18 06/23/2020 3:25 PM MACHINE SOLE LEVELER Oxygen Saturation 98% 06/23/2020 3:25 PM MACHINE SOLE LEVELER Inhaled Oxygen Concentration - - Weight 58.8 kg (129 lb 10.1 oz) 021 10:45 AM MACHINE SOLE LEVELER Height 160 cm (5' 3 ) 06/23/2020 10:45 AM MACHINE SOLE LEVELER Body Mass Index 22.96 06/23/2020 10:45 AM MACHINE SOLE LEVELER Plan of Treatment Health Maintenance Due Date Last Done Comments Colorectal Cancer Screening Colonoscopy (10 Years) 1957 Hepatitis C 12/02/1975 DTaP, Tdap and Td Vaccines ( 1 - Tdap) 1976 Mammogram Screening 1997 Pneumococcal Vaccine: 50+ Ye ars (1 of 1 - PCV) 12/02/2007 Zoster Vaccines (1 of 2) 12/02/2007 Dexa Scan (General) 2022 COVID-19 Vaccine (1 - 2023-2 5 season) 2023 RSV Immunization or 60+ Years (1 - 1-dose 75+ series) 2032 Meningococcal B Vaccine Aged Out No l onger eligible based on patient's age to complete this topic Meningococcal Vaccine Aged Out No anitha williams eligible based on patient's age to complete this topic RSV Immunizations Under 20 Months Aged Out No longer eligible based on patient's age to complete this topic Medical Devices Implanted Type Area Executive Admin Device Identifier Shelf Expiration Date Model / Serial / Lot Obtryx Ii System Halo Implanted:Qty: 1 on 06/23/2020 by Adan Anna MD at [facility] N/A: Pelvis 02/24/2023 / / [id number] Insurance [employer] Care Teams Felt Pad Cutter Relationship Specialty Start Date End Date Michael Dumont MD [address] [place] [id number] PCP - General FAMILY PRACTICE 06/20/20
[2024-08-27 10:29] LABS: Anion Gap 7 mmol/L (4-12); Blood Urea Nitrogen 21 mg/dL (7-17); Calcium 9.7 mg/dL (8.4-10.2); Carbon Dioxide 34 mmol/L (22-30); Chloride 97 mmol/L (98-107); Estimated Glomerular Filt Rate > 60; Glucose 90 mg/dL (65-110); Potassium 4.2 mmol/L (3.4-5.0); Sodium 138 mmol/L (137-145)
== END 2024-08-27 09:55 | disposition home or self-care (01) ==
LOC: ANHSURGERY 09:58
PROVIDERS: Anesthesiology; PCP Family Medicine; Visit Provider Orthopaedic Surgery
DX: Z01.812 Encounter for preprocedural laboratory examination (principal); Z79.899 Other long term (current) drug therapy
CPT/HCPCS: 36415; 80048

== ENCOUNTER 2024-09-02 00:07 | Day surgery (SDC) | payer MEDICARE, OTHER, SELFPAY ==
[2024-08-24 08:20] VITALS: BMI 22.9
--- NOTE | 2024-08-24 08:33 | PC.NURSE ---
Report to the Outpatient Waiting Room, entrance under the green pavilion located off [facility], at time __0800am on date 09/02/24 . Planned Procedure Time: ___1000am . Time changes happen often and if your time is changed the preop area will call you the afternoon before. - You and your visitor will be asked to self-screen and do not enter if you have any COVID symptoms. Please call surgeon if you need to reschedule. - A mask is optional within the hospital at this time. Patients may have clear liquids (water, carbonated beverages, clear teas, apple juice) until 3 hours prior to surgery with a maximum of 20 ounces. - No food from midnight until time of surgery and no smoking, or chewing tobacco (or any form of nicotine). No chewing gum, candy or mints. (0700am) Take only the following medications with a SIP of water on the morning of surgery: Venlafaxine & eye Drops DO NOT STOP ANY OF YOUR OTHER PRESCRIPTION MEDICATIONS PRIOR TO SURGERY EXCEPT THE FOLLOWING Hold all vitamins and supplements for 3 days per anesthesiologist. Date of last dose 08/29/24 Medications to discontinue per physician None Date to take last dose None Please no make-up, nail hebrew, hairspray, perfume, deodorant, or body powder the day of surgery. No jewelry (including any body piercings) or valuables the day of surgery, leave them at home. Please take a shower or bath the night before, or the morning of, surgery with an antibacterial soap. Wear comfortable, loose fitting clothing. - Jewelry must be removed prior to entering the operating room. Rings and piercings that are not removed may be cut off. - The hospital will not accept responsibility for valuables. - Please leave all valuables, including medications, at home the day of surgery. If you are going home after surgery, a licensed limb driver must drive you home. - NO public transportation without another adult if you receive anesthesia. - We recommend that an adult stay with you for 24 hours following discharge. - We also recommend that you do not drive, make important decision, drink alcoholic beverages, or take any drugs that were not prescribed by your health care provider for at least 24 hours after your discharge time. Follow any additional instructions given to you from your surgeon. Telephone instructions given to __Patient and asked if any additional questions and then verbalized understanding. Patient advised to call surgeon office or pre surgery nurse liaison [phone] if any additional questions.
--- NOTE | 2024-09-01 10:49 | P.HP_ITS ---
H&P: HPI History of Present Illness Date/Time: 09/01/24 10:49 Chief Complaint: Patient is status postop reduction internal fixation of a LEFT patella fracture. The problem hardware is prominent this time she would like it removed. Review of Systems Musculoskeletal: Musculoskeletal: Reports myalgias, Reports arthralgias, Reports joint swelling and Reports stiffness [facility] Past Medical History Medical History Hypertension Age related osteoporosis Depression Glaucoma Surgical History Surgical History H/O knee surgery History of cataract surgery H/O colonoscopy with polypectomy 05/22/2021 History of bladder surgery bladder suspension 2019 [place] teeth removed S/P laparoscopic surgery H/O hysterectomy with oophorectomy 2002 H/O dilation and curettage (Unknown) History of tubal ligation Family History Family History Father Diabetes mellitus, Onset Age: 85 Hypertension, Onset Age: 85 Acute myocardial infarction Other Family history of malignant neoplasm Social History Social History Smoking packs per day: 0.5 Smoking cigarettes per day: 10.0 Years smoked: 10 Smoking pack-years: 5.00 Smoking status: Former smoker Tobacco type: cigarettes Second hand tobacco smoke exposure: No Smoking end date: 04/22/93 Alcohol intake: current Drinks per week: 2 Substance use: never Substance use type: does not use Current Housing: Decline to Answer Concerned About Future Housing: Decline to Answer Difficulty Paying Gas/Electric Bills: Decline to Answer Difficulty Paying for Meds: Decline to Answer Currently Unemployed: Decline to Answer Education: Decline to Answer Difficulty w/ Childcare or Family Care: Decline to Answer Living arrangements: with family Additional living arrangements comments: Occupation/Education: retired 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 Gender identity (if verbalized by the patient): Female Sexual Orientation (if Verbalized by the Patient): Straight or Heterosexual Spiritual care concerns: No Meds Home Medications and Allergies Home Medications Medication Instructions Recorded Confirmed Type calcium carbonate (Calcium 600) 600 mg PO DAILY 03/13/19 08/24/24 History cyanocobalamin (vitamin B-12) 1,000 mcg PO DAILY 03/22/20 08/24/24 History 1,000 mcg capsule latanoprost 0.005 % eye drops 1 drp EACH EYE DAILY 03/12/23 08/24/24 History hydrochlorothiazide 25 mg tablet See Rx Instructions .Route 04/14/24 08/24/24 Rx .COMPLEX #90 tabs venlafaxine 150 mg 150 mg PO DAILY #90 caps 06/15/24 08/24/24 Rx capsule,extended release 24 hr timolol maleate 0.5 % eye drops 1 drp EACH EYE Q12H 07/15/24 08/24/24 History Allergies Allergy/AdvReac Type Severity Reaction Status Date / Time Sulfa (Sulfonamide Allergy Rash Verified 08/24/24 08:17 Antibiotics) Exam Narrative: Examination left knee reveals a well-healed surgical scar. She has motion of her knee from 0 to 120° she has grinding crepitus and pain with manipulation. The hardware is palpable and prominent. Eyes: General: appearance normal, both eyes and all related structures Neck: Neck: supple Resp: Effort & Inspection: normal respiratory effort Cardio: Rate: regular rate Rhythm: regular rhythm Assessment and Plan Assessment and plan (1) Left patella fracture: Code(s): S82.002A - Unspecified fracture of left patella, initial encounter for closed fracture Status: Acute Assessment and Plan: Patient is status post patella fracture with prominent hardware. She would like to have the hardware removed. I have discussed this with her in detail risks benefits limitations and alternatives. She understands would like to proceed. I told is no 100% guarantee that a relieve although the pain that she has a she does have some degenerative changes as well.
[2024-09-02] VITALS (9 sets, daily range): BP systolic 92–131; BP diastolic 62–89; PULSE 73–86; RESP 13–18; TEMP 36.2–36.6; O2SAT 93–99
--- NOTE | ~2024-09-02 | XR_ITS ---
EXAMINATION: XR surgery orthopedic DATE: 09/02/2024 10:27 INDICATION: Left knee instrumentation removal TECHNIQUE: 2 fluoroscopic images of the left knee were obtained during procedure performed by . Radiologist was not present for the imaging or procedure. The amount of fluoroscopy time used during this procedure was 0.8 minutes. Total DAP was 0.543 Gycm^2. COMPARISON: 11/22/2023 FINDINGS: Initial image demonstrates a residual pin for prior patellar cerclage wire fixation. This removed wit h subtle residual lucent pin tract evident on the subsequent image. No fractures. 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 IMPRESSION: 1. Fluoroscopy utilized during removal of a patellar fixation pin. See procedure note for further det ail. Reviewed, dictated and finalized at location A. IMPRESSION: 1. Fluoroscopy utilized during removal of a patellar fixation pin. See procedur e note for further detail.
--- OUTSIDE RECORDS SUMMARY | 2024-09-02 00:12 | XMS_ITS | Continuity of Care Document ---
Author Organization [facility] Address [address] [facility] [address] [facility] [address] [place] [address] Phone Care Team Providers Care Membership Assistant Name Role Phone Paty Sesay Unavailable Unavailable Advance Directives Directive Yes / No Effective Date File Name No Information Encounters Encounter Description Practice Location Reason(s) For Visit Diagnoses Date Provider Providers Copied on Encounter [facility], [address], [place], [place], [id number], [place] tel:[phone] [facility] No Information 0 1200 5 Shama Newman. [address] , [address], [place], [address], [place]. tel:[phone] Family History Family Member Type Diagnosis Age At Onset No Information Payers Payer name Insurance type Covered constitution party ID Authoriza tivel(s) [facility] Commercial CI [id number] Social History Type Description Quantity Date Captured Comments Sex Female Smoking Status No Information Chief Complaint And Reason For Visit No Information Reason For Referral Reason For Referral No Information History Of Present Illness Encounter Date Complaint History Of Prese nt Illness No Information Functional Status Date Functional Assessmen t No Information Instructions Date Instruction Additional Infor mation No Information Assessments Type Assessment Date No Information Patient Care Teams Name Effective Dates (start - stop) Status Members No Information
--- OUTSIDE RECORDS SUMMARY | 2024-09-02 00:12 | XMS_ITS | Encounter Summary ---
Author Organization [facility] Address [facility] [place] [address] Care Team Providers Care Hospice Physician Name Role Phone Michael Dumont MD Primary Care Provider Encounter Details Date Type Department Care Team (Late st Contact Info) Description 06/12/[address] [facility], [place] [id number] Hu Matamoros MD [address] [facility] [place], [place] [id number] Social History Tobacco Use Types Packs/Day Years [...] COVID-19? No / Unsure 06/15/2020 2:09 PM VACCINATOR documented as of this encounter H&P Notes * Hu Matamoros MD - 06/12/2020 2:48 PM CST Attending Provider: No att. providers found PCP: No primary care provider on file. Marielle Mo is an 64-year-old female. Reason for Admission: surgery for RASHEL HPI: Stress incontinence No past medical history on file. none Allergies: Not on File sulfa Social History Tobacco Use â€¢ Smoking status: Not on file Substance Use Topics â€¢ Alcohol use: Not on file No past [...] Plan: Urethral sling HU MATAMOROS MD 06/12/2020 INATOR documented in this encounter Plan of Treatment Not on file documented as of this encounter Visit Diagnoses Not on filedocumented in this encounter Additional Health Concerns Infection Onset Date Last Indicated Resolved Time COVID-19 Rule Out 06/20/2020 06/20/2020 06/21/2020 11:21 PM VACCINATOR documented as of this encounter Care Teams Hospice Physician Relationship Specialty Start Date End Date Michael Dumont MD [address] [place] [address] PCP - General FAMILY PRACTICE 06/20/20 documented as of this encounter
--- OUTSIDE RECORDS SUMMARY | 2024-09-02 00:12 | XMS_ITS | Clinical Summary ---
Author Organization [facility] Address [address] [place] [address] Care Team Providers Care Director Of Counseling Name Role Phone Michael Dumont MD Primary Care Provider [phone] Allergies Active Allergy Reactions Criticality Noted Date [...] Comments Blood Pressure 161/97 06/23/2020 3:25 PM TESTING COORDINATOR Pulse 63 06/23/2020 3:25 PM TESTING COORDINATOR Temperature 36.6 C (97.8 F) 06/23/2020 3:25 PM TESTING COORDINATOR Respiratory Rate 18 06/23/2020 3:25 PM TESTING COORDINATOR Oxygen Saturation 98% 06/23/2020 3:25 PM TESTING COORDINATOR Inhaled Oxygen Concentration - - Weight 58.8 kg (129 lb 10.1 oz) 021 10:45 AM TESTING COORDINATOR Height 160 cm (5' 3 ) 06/23/2020 10:45 AM TESTING COORDINATOR Body Mass Index 22.96 06/23/2020 10:45 AM TESTING COORDINATOR Plan of Treatment Health Maintenance Due Date [...] this topic Medical Devices Implanted Type Area Linen Controller Device Identifier Shelf Expiration Date Model / Serial / Lot Obtryx Ii System Halo Implanted:Qty: 1 on 06/23/2020 by Adan Anna MD at [facility] N/A: Pelvis 02/24/2023 / / [id number] Insurance [employer] Care Teams Director Of Counseling Relationship Specialty Start Date End Date Michael Dumont MD [address] [place] [id number] PCP - General FAMILY PRACTICE 06/20/20
--- OUTSIDE RECORDS SUMMARY | 2024-09-02 00:12 | XMS_ITS | Encounter Summary ---
Author Organization [facility] Address [facility] [place] [address] Care Team Providers Care Manager Agriculture Name Role Phone Michael Dumont MD Primary Care Provider [phone] Encounter Details Date Type Department Care Team (Late st Contact Info) Description 06/23/2020 Prep for Procedure [facility] [address] [place], [place] [id number] Adan Anna MD [address] [facility]. [place], [place] [id number] Social History Tobacco Use Types Packs/Day Years [...] COVID-19? No / Unsure 06/23/2020 10:02 AM VP PUBLIC RELATIONS documented as of this encounter Plan of Treatment Not on file documented as of this encounter Results * PRE-SURGICAL/PRE-PROCEDURE CORONAVIRUS (COVID 19) (06/20/2020 10:02 AM VP PUBLIC RELATIONS) CORONAVIRUS SARS COV 2 PCR (RESP) NOT DETECTED NOT DETECTED 06/21/2020 11:21 PM VP PUBLIC RELATIONS [facility] Comment: A Not Detected (negative) test [...] providers and patients using the following websites: https://www.[employer].Volofy/home/Covid-19/HCP/Quest[facility]/fact- sheet.html https://www.[employer].Volofy/home/Covid-19/Patients/ Quest[employer]/fact-sheet.html This test has been authorized by the FDA under an Emergency Use Authorization (EUA) for use by authorized laboratories. Due to the current public health emergency, [facility] is receiving a high volume of samples [...] about COVID-19 can be found at the [facility] website: www.Volofy.Volofy/Covid19. Test performed at [facility] [place] [address] [place] [address] Director: ROSANNE MICHAEL DO,MPH FIRST TEST YES 06/20/2020 10:37 AM [facility] EMPLOYED IN HEALTHCARE UNKNOWN 06/20/2020 10:37 AM [facility] SYMPTOMATIC DEFINED BY CDC NO 06/20/2020 10:37 AM VP [employer]ATIONS [facility] DATE OF SYMPTOM ONSET NO 06/20/2020 10:51 AM VP PUBLIC RELATIONS [facility] HOSPITALIZATION STATUS NO 06/20/2020 10:37 AM [facility] [employer] [facility] PATIENT IN ICU NO 06/20/2020 10:37 AM [facility] [employer] [facility] RESIDENT OF CONGREGATE CARE UNKNOWN 06/20/2020 10:37 AM [facility] [employer]ATIONS [facility] NO 06/20/2020 10:51 AM VP [employer] RELATIONS [facility] PATIENT'S RACE WHITE OR 06/20/2020 10:37 AM [facility] [employer]ATIONS [facility] ETHNICITY NONHISPANIC 06/20/2020 10:37 AM [facility] SOURCE (QST) NASOPHARYNGEAL SWAB 06/20/2020 10:37 AM [facility] [employer] [facility] NASOPHARYNGEAL SWAB / Unknown 06/20/2020 10:02 AM [facility] [employer] us Adan Anna MD MICROBIOLOGY - GENERAL ORDER DANG Final Result [facility] [address] [place] [address], [place] [phone] [facility] [address] [place] [address], documented in this encounter Visit Diagnoses Diagnosis Preoperative testing- Primary Preoperative examination, unspecified documented in this encounter Care Teams Manager Agriculture Relationship Specialty Start Date End Date Michael Dumont MD [address] [place] [id number] PCP - General FAMILY PRACTICE 06/20/20 documented as of this encounter
--- NOTE | 2024-09-02 06:40 | WPDHPUPDATE1 ---
History and Physical Update Update Date/Time: 09/02/24 06:40 History and Physical has been reviewed, including an updated exam of the patient. There are NO changes in the patient's condition. Risks, benefits, and alternatives have been discussed and questions answered. Patient agrees to proceed with procedure.
--- NOTE | 2024-09-02 09:13 | P.PNAN_ITS ---
Anes - Initial Pre Proc Eval Procedure: Operation Date: 09/02/24 10:00 Proposed Procedures p Removal Hardware Left Knee - Joshua Sanford MD Date/Time: 09/02/24 09:13 Surgeon: Joshua Sanford MD Pre Op Diagnosis: s/p left knee fracture Patient Data Age: 68 Gender: F Height: 1.6 m Weight: 58.6 kg Last Vital Signs Temp 36.2 C L 09/02/24 08:19 Pulse 73 09/02/24 08:19 Resp 18 09/02/24 08:19 BP 131/89 09/02/24 08:19 Pulse Ox 95 09/02/24 08:19 O2 Del Method Room Air 09/02/24 08:19 Allergies Allergy/AdvReac Type Severity Reaction Status Date / Time Sulfa (Sulfonamide Allergy Rash Verified 09/02/24 08:19 Antibiotics) Home Medications Medication Instructions Recorded Confirmed Type calcium carbonate (Calcium 600) 600 mg PO DAILY 03/13/19 09/02/24 History cyanocobalamin (vitamin B-12) 1,000 mcg PO DAILY 03/22/20 09/02/24 History 1,000 mcg capsule latanoprost 0.005 % eye drops 1 drp EACH EYE DAILY 03/12/23 09/02/24 History hydrochlorothiazide 25 mg tablet See Rx Instructions .Route 04/14/24 09/02/24 Rx .COMPLEX #90 tabs venlafaxine 150 mg 150 mg PO DAILY #90 caps 06/15/24 09/02/24 Rx capsule,extended release 24 hr timolol maleate 0.5 % eye drops 1 drp EACH EYE Q12H 07/15/24 09/02/24 History Patient hx anesthesia problems: none Family hx anesthesia problems: none Results Review: All pre-operative results and documents have been reviewed as part of the pre- operative evaluation. [facility] Past Medical History Medical History Hypertension Age related osteoporosis Depression Glaucoma Surgical History Surgical History H/O knee surgery History of cataract surgery H/O colonoscopy with polypectomy 05/22/2021 History of bladder surgery bladder suspension 2019 [place] teeth removed S/P laparoscopic surgery H/O hysterectomy with oophorectomy 2002 H/O dilation and curettage (Unknown) History of tubal ligation Family History Family History Father Diabetes mellitus, Onset Age: 85 Hypertension, Onset Age: 85 Acute myocardial infarction Other Family history of malignant neoplasm Social History Social History Smoking packs per day: 0.5 Smoking cigarettes per day: 10.0 Years smoked: 10 Smoking pack-years: 5.00 Smoking status: Former smoker Tobacco type: cigarettes Second hand tobacco smoke exposure: No Smoking end date: 04/22/93 Alcohol intake: current Drinks per week: 2 Substance use: never Substance use type: does not use Current Housing: Decline to Answer Concerned About Future Housing: Decline to Answer Difficulty Paying Gas/Electric Bills: Decline to Answer Difficulty Paying for Meds: Decline to Answer Currently Unemployed: Decline to Answer Education: Decline to Answer Difficulty w/ Childcare or Family Care: Decline to Answer Living arrangements: with family Additional living arrangements comments: Occupation/Education: retired 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 Gender identity (if verbalized by the patient): Female Sexual Orientation (if Verbalized by the Patient): Straight or Heterosexual Spiritual care concerns: No Anes - Eval Final PreProcedure Day of Procedure 09/02/24 09:13 Patient weight: normal Heart: regular rate and rhythm Lungs: clear to auscultation Airway: Mallampati scale class II Neurological: alert and oriented Last oral intake: >/= 8 hours ASA classification: II Emergent: no Anesthetic plan: proceed Anesthesia type and monitoring: general LMA and standard monitoring Results Review: All pre-operative results and documents have been reviewed as part of the pre- operative evaluation. Informed Consent: The patient's anesthetic plan and its attendant risks and benefits were discussed with the patient/family/POA. Questions were solicited and answers provided to the satisfaction of the patient/family/POA.
[2024-09-02] MEDS: ceFAZolin 2 GM/D5W 50 ML 2 GM/50 ML BAG IVPB (09:36)
--- NOTE | 2024-09-02 10:21 | W.PM.PROC2 ---
Procedure Note - Detailed Date of Procedure 09/02/24 Pre-op Diagnosis Status post patella fracture left with prominent hardware. Post-op Diagnosis Same Procedure Performed Removal hardware Surgeon Joshua Sanford MD Career Development Specialist Marion Thompson Anesthesia General Indications Pain and prominent hardware Description of Procedure Patient brought to operating room #7. A general anesthetic was administered. The incision was made through the previous scar and carried down to the patella. With some difficulty the hardware was found and removed. I first removed the cable, and then each of the pins. Cutting the ends of 1 side. At this point, the single incisions on the superior and inferior part of the tendons were closed with #2 Vicryl. The skin was closed with 2-0 Vicryl and the 3-0 Prolene. Sterile dressing applied patient tolerated procedure well. Estimated Blood Loss 5 Complications No immediate complications Condition Stable [facility] Billing Surgery - Charge Forward: Surgery Billing ([id number] Removal Harware)
[2024-09-02] MEDS: LACTATED RINGERS 1,000 ML 30 ML IV CONT (10:36)
[2024-09-02] MEDS: fentaNYL CITRATE INJ (*CRX) 100 MCG/2 ML VIAL 25 MCG IV PUSH ×3 (10:48→11:20)
[2024-09-02] MEDS: oxyCODONE HCL (*CRX) 5 MG TAB IR PO (11:52)
== END 2024-09-02 12:32 | disposition home or self-care (01) ==
PROVIDERS: PCP Family Medicine; Visit Provider Orthopaedic Surgery
PROC: (CPT 20680; principal; 2024-09-02 10:00)
DX: T84.84XA Pain due to internal orthopedic prosthetic devices, implants and grafts, initial encounter (principal); M25.562 Pain in left knee; Y83.1 Surgical operation with implant of artificial internal device as the cause of abnormal reaction of the patient, or of later complication, without mention of misadventure at the time of the procedure; Z87.891 Personal history of nicotine dependence
CPT/HCPCS: 20680; 99199; A9270; J0360; J0690; J1100; J2003; J2250; J2405; J2704; J3010; J7120

== ENCOUNTER 2024-10-29 10:04 | Outpatient (CLI) | payer MEDICARE, OTHER, SELFPAY ==
--- NOTE | ~2024-10-29 | MM_ITS ---
EXAMINATION: MM screening alex BI w jorgito HISTORY: Screening mammogram TECHNIQUE: Craniocaudal and mediolateral oblique 3-D tomosynthesis images were obtained and synthetic 2-D images were generated. CAD analysis was submitted and interpreted. COMPARISON: No prior mammogram is available for comparison at this institution. BREAST PARENCHYMAL COMPOSITION:Not Dense. There are scattered areas of fibroglandular density. FINDINGS: No suspicious mass, calcification, or architectural distortion are identified in either demond ast to suggest malignancy. There has been no suspicious interval change. IMPRESSION: No mammographic evidence of malignancy. Recommend routine screening mammography in one year. BI-RADS Category 1: Negative Reviewed, dictated and finalized at location .
== END 2024-10-29 10:05 | disposition home or self-care (01) ==
PROVIDERS: PCP Family Medicine; Visit Provider Nurse Practitioner Family
DX: Z12.31 Encounter for screening mammogram for malignant neoplasm of breast (principal)
CPT/HCPCS: 77063; 77067